=== PATIENT | female | born 1995 | race Caucasian/White ===

== ENCOUNTER 2022-11-08 12:05 | Outpatient (CLI) | payer MEDICAID, SELFPAY ==
[2022-11-08 12:18] VITALS: BP 124/64; PULSE 96; TEMP 36.7; O2SAT 98
[2022-11-08 12:19] VITALS: PULSE 98; O2SAT 98
[2022-11-08 12:23] VITALS: BMI 39.7
[2022-11-08 13:08] LABS: Color, Urine Yellow (Yellow); Glucose, Dipstick 100 mg/dl (Normal); Ketone-Dipstick Negative (Negative); Leukocyte Esterase-Dipstick 25 /ul (Negative); Nitrite-Dipstick Negative (Negative); Occult Blood-Urine Negative /ul (Negative); Protein-Dipstick 15 mg/dl (Negative); Specific Gravity, Urine 1.015 (1.002-1.030); Urine Bilirubin Dipstick Negative (Negative); Urine Clarity Clear (Clear); Urine Urobilinogen Normal (Normal)
--- NOTE | 2022-11-10 09:43 | OB.TRI.HP_ITS ---
HPI - General HPI Narrative IVY DAVILA, is a 27 F who presents at 24w0d, for abdominal cramping. Patient recieves care at another facility but was working in [place], [facility], and came in for evaluation. No vaginal bleeding. Maternal Data Information KULWANT Calculator Estimated Delivery Date Method Current WG Current Estimate 02/28/23 Manual 24w 2d PFSH PFSH Medical History (Updated 11/10/22 @ 09:45 by Patricia Dickinson CNM) PIETER (generalized anxiety disorder) MDD (major depressive disorder) PTSD (post-traumatic stress disorder) Home Medications 1 tab PO.IVFORM DAILY 11/08/22 [History Last Taken Unknown] Allergy/AdvReac Type Severity Reaction Status Date / Time codeine Allergy Other Verified 11/08/22 12:24 guaifenesin [tussin] Allergy Other Verified 11/08/22 12:24 Visit Details OB Flowsheet Initial Weight: Not Recorded Date -?-?-?-?-?-?-?-?-?-?-?-?- EGA Weight BP Urine Prot -?-?-?-?-?-?-?-?-?-?-?-?- Glucose FHR FuHt Pres Dilation -?-?-?-?-?-?-?-?-?-?-?-?- Effaced St Visit Note 11/08/22 -?-?-?-?-?-?-?-?-?-?-?-?- 24w 0d 217 lb 6 oz 124/64 15 m g/dl (Negative) H -?-?-?-?-?-?-?-?-?-?-?-?- -?-?-?-?-?-?-?-?-?-?-?-?- NST FHR Rate Baby A Baseline: 155 Assessment & Plan (1) Cramping affecting , antepartum: PLAN: Plan 1) No signs of PTL, reviewed when to call 2) UA sent and urine culture 3) D/C home and follow up with primary OB provider
== END 2022-11-08 13:30 | disposition home or self-care (01) ==
LOC: WPOUT 12:07 → WP 12:07
PROVIDERS: Advanced Practice Midwife; Referring Provider Obstetrics & Gynecology; Visit Provider Obstetrics & Gynecology
DX: O99.891 Other specified diseases and conditions complicating pregnancy (principal); R10.9 Unspecified abdominal pain; Z3A.24 24 weeks gestation of pregnancy
CPT/HCPCS: 59025; 59050; 81002; 87086; 99221; G0378